=== PATIENT | male | born 1970 ===

== ENCOUNTER → 2025-01-06 10:47 | Outpatient (BNVA) | payer MEDICAID, SELFPAY | PROVIDERS: PCP Nurse Practitioner Family; Visit Provider Nurse Practitioner Family | DX: I10 Essential (primary) hypertension (principal); E11.9 Type 2 diabetes mellitus without complications; E78.2 Mixed hyperlipidemia; Z95.5 Presence of coronary angioplasty implant and graft; Z79.899 Other long term (current) drug therapy | CPT/HCPCS: 74018; 80053; 80061; 81003; 82306; 83036; 84443; 85025; G0103 ==

== ENCOUNTER → 2025-01-20 16:07 | Outpatient (BNVA) | payer MEDICAID, SELFPAY | PROVIDERS: PCP Nurse Practitioner Family; Visit Provider Nurse Practitioner Family | DX: M17.0 Bilateral primary osteoarthritis of knee (principal); M25.572 Pain in left ankle and joints of left foot; M25.571 Pain in right ankle and joints of right foot | CPT/HCPCS: 73562; 73610 ==

== ENCOUNTER → 2025-02-09 14:28 | Outpatient (BNVA) | payer MEDICAID, SELFPAY | PROVIDERS: PCP Nurse Practitioner Family; Visit Provider Internal Medicine Cardiovascular Disease | DX: R07.9 Chest pain, unspecified (principal); I44.4 Left anterior fascicular block | CPT/HCPCS: 93005 ==

== ENCOUNTER 2025-02-22 07:17 | Outpatient (CLI) | payer MEDICAID, SELFPAY ==
[2025-02-22 07:44] VITALS: BMI 28.3
--- NOTE | 2025-02-22 07:57 | ECG_ITS ---
[facility] [place] [facility] Date: 2025-02-22 Pat Name: Nate Alfredo Department: Room: Gender: Male Clothing Manager: : 1970 Requested By: Maninder Teran Order Number: [id number] Cruz MD: Roge Lau M.D. Interpretive Statements EXERCISE MIBI : EXERCISE DATA: The patient was exercised by Anselmo protocol. Baseline heart rate was 81 beats per minute. Baseline blood pressure was 134/87 millimeters of mercury. Maximal predicted heart rate was 168 beats per minute. Maximum heart rate achieved was 161, which was 95% of the maximum predicted heart rate. Maximum blood pressure was 155/99 millimeters of mercury. Total exercise time was 7 minutes. Maximum METs achieved was 10.2. The reason for ending the test was completion of protocol. The patient complained of shortness of breath during the stress test, which then resolved at the end of the test. ELECTROCARDIOGRAM: BASELINE: Showed sinus rhythm, normal axis, no significant ST-T changes at the baseline noted. [] EXERCISE: At the peak exercise level, [] No significant ST-T changes suggestive of ischemia noted. [] RECOVERY: During the recovery period, heart rate dropped appropriately.ST depressions and T wave inversions seen in inferior and anterolateral leads CONCLUSION: 1. Exercise capacity is good 2. Heart rate response was appropriate 3. Blood pressure response was appropriate 4. Symptoms not suggestive of ischemia. 5. Electrocardiogram portion of the stress test showed ST depressions and T wave inversions in recovery phase in inferior and anterolateral leads. Correlate with imaging 6. Nuclear scan will be documented separately. Electronically Signed On 03-04-2025 20:34:39 CDT by Roge Lau M.D. [email or web address]
--- NOTE | 2025-02-22 07:58 | NMCV_ITS ---
NM rita perf SPECT r/s* [id number] Nate Alfredo Age: 54 Gender: M : 1970 Exam Date: 02/22/2025 08:07 Ordering Phys: Maninder Teran MD ([email or web address]) Technologist: KIMBERLY Monk Exam Location: [facility] Indications: cp STRESS TEST Please see separate stress test report in [facility] for full findings IMAGE PROTOCOL Rest/Stress 1 Exercise Day Radiopharmaceutical Dose (mCi) Administration Site Administered by Rest: Tc-99m 11 IV KIMBERLY Monk Sestamibi Stress:Tc-99m 32.5 IV KIMBERLY Fitzgerald Sestamibi Rest: 22-Feb-2025 60 Discovery 630 Stress: 22-Feb-2025 30 Discovery 630 Radiopharmaceutical was injected at 87 % maximum heart rate. Images obtained in supine and prone position. SPECT RESULTS Technical Quality: Good Raw Data Analysis: Normal Image Corrections: No attenuation or motion correction applied Summed Stress Score: 14 Summed Rest Score: 11 Summed Difference Score: 4 PERFUSION FINDINGS Large area of fixed perfusion defect noted in basal to distal lateral wall surrounded by small to medium sized area of severe reversibility in the distal lateral wall and apex of the left ventricle suggestive of lesion in dominant circumflex territory. Small area of mild reversibility noted in the mid anterior wall suggestive of possible artifact versus ischemia in LAD territory. FUNCTIONAL RESULTS (calculated via Gated SPECT) Stress Image LV EF (%): 35 Stress EDV (mL):176 TID: 1.34 Stress ESV (mL):114 FUNCTIONAL FINDINGS: TID ratio is elevated severely decreased left ventricular ejection fraction estimated ejection fraction 35%. Please note that nuclear stress test is not designed to estimate ejection fraction echocardiogram may be considered. IMPRESSIONS Large area of old myocardial infarction noted in basal to distal lateral wall surrounded by small to medium sized area of severe ischemia suggestive of lesion in circumflex territory. Small area of mild ischemia noted in the mid anterior wall in the absence of wall motion abnormality may suggest artifact however cannot rule out obstructive coronary artery disease Increased TID ratio could be secondary to multivessel coronary artery disease. Danae Gale MD (Electronically Signed) Final Date: 22 February 2025 14:51 S
[2025-02-22 08:56] VITALS: BP 132/84; PULSE 88
== END 2025-02-22 07:18 | disposition home or self-care (01) ==
LOC: CDL 07:19
PROVIDERS: PCP Nurse Practitioner Family; Visit Provider Internal Medicine Cardiovascular Disease
DX: I25.10 Atherosclerotic heart disease of native coronary artery without angina pectoris (principal); R93.1 Abnormal findings on diagnostic imaging of heart and coronary circulation
CPT/HCPCS: 36415; 78452; 93017; A9500

== ENCOUNTER 2025-03-14 05:39 | Outpatient (CLI) | payer MEDICAID, SELFPAY ==
[2025-03-14] VITALS (16 sets, daily range): BP systolic 109–140; BP diastolic 67–99; PULSE 68–890; RESP 13–17; TEMP 36.7; O2SAT 92–98; BMI 29.2
--- NOTE | 2025-03-14 06:00 | XACV_ITS ---
Exam Room: 2 Ht: 165 cm Wt: 80 kg BSA: 1.94 m2 Gender: Male : 1970 Any Known Allergies: No known allergies Exam Priority: Routine Procedure(s): Procedure Description: Diagnostic procedure Procedure Description: Left Heart Catheterization Procedure Description: Left ventriculography Procedure Description: Coronary Angiography Baljinder MORRIS; Conclusions 1. Indication: Worsening of angina with shortness of breath suggestive of unstable/Abn stress test#1 Left main: Normal#2 LAD is moderate size and caliber long vessel with proximal high-grade in-stent restenosis, there is mid high-grade 90% lesion after the mid LAD stent. There are 2 diagonal small caliber vessels without significant stenosis.#3 Left circumflex artery: Proximal 80% eccentric torturous stenosis, there is a mid 90% stenosis, obtuse marginal 1 does not have any significant stenosis#4 RCA is a moderate caliber in size vessel with distal 60 to 70% stenosis Left ventriculography was performed which shows moderately reduced left ventricular ejection fraction 45% there is anterior and and apical wall hypokinesis. Recommendations * 1-Return to ICU for close monitoring and routine PCI care 2-Continue IV heparin drip as per ACS protocol 3-Hold Plavix for possible CABG 4-Statin with LDL goal of 70 mg/dl, aspirin 81 mg p.o. daily for life long 5-CT surgery consults for CABG , refferred to [facility] 6-Optimal medical management for [place] 7-Follow up with Dr. Gale in four weeks and establish care with primary care physician. Diagnostic RX Recommendation: CABG Ventriculography Ejection Fraction: 40.0 % Pressures Phase:Rest AO : 106 / 76 ( 88 ) @ 8:53:00 AM 111 / 70 ( 88 ) @ 9:03:00 AM 111 / 52 ( 79 ) @ 9:03:00 AM LV : 116 / -2 / 9 @ 9:01:00 AM 121 / -5 / 8 @ 9:03:00 AM 124 / -4 / 9 @ 9:03:00 AM Valves Phase:DefaultPhase AV : 11.0 @ 8:08:23 AM AV Mean Gradient: 17.0 @ 8:08:23 AM Clinical Evaluation EBL: 5mL-10mL Procedural Details Procedure Consent Obtained. Pre-Procedure Time Out. Identified patient by full name and date of as verbalized by the patient/guarantor. Does the consent match the physician's order: Yes. Accurate & Complete Informed Consent: Yes. Inpatient/Outpatient History & Physical on Chart: Yes. If H&P is completed, is and addenduem needed: No. Visualize and Verify Site with Patient/Guarantor: N/A. Relevant Radiology Images available: Yes. The risks, benefits, and alternatives of sedation and/or procedure were discussed by physician. The patient agrees to continue. Procedure started. [facility] Clinical Fraility Score: 3: Managing Well. Human Resources Department Supervisor Indications: Suspected CAD/Abnormal stress test. Chest Pain Symptom Assessment: Typical Angina Symptoms. Cardiovascular Instability: No. Correct patient, site and procedure confirmed by cath team. PERRLA. Strong, equal hand starting sheet tank operator bilaterally. Lungs clear x 5 lobes. IV Site on Arrival: 20 gauge in the right anticubital. IV Fluids: 0.9% NaCl at KVO. 0 mL infused prior to wood preserving plant laborer. Pre Procedural Pulses: bilateral dorsalis pedis was 3+. Pre Procedural Pulses: bilateral posterior tibial was 3+. Pre Procedural Pulses: bilateral radial was 2+. Oxygen started at 2liters/min via nasal canula. right groin was prepped with chloroprep then draped in the usual sterile fashion. right radial was prepped with chloroprep then draped in the usual sterile fashion. Physician notified. Baseline sample Acquired. HR: 83 BPM. Patient's family in CPRU room #3. Dr. Gale will update at the completion of the procedure. Equipment: 6F - Radial. Cardiac Cath Pack. ACIST Manifold Kit Model BT 2000. Heparinized Saline (2 units/mL), 1000 mL bag. Physician arrived. Physician scrubbed in. Immediate Pre-Procedure Time Out. Correct Patient: Yes; Correct Procedure: Yes; Correct Site: Yes; Correct Patient Position: Yes; Correct Supplies: Yes; Dried Flammable Prep: Yes; Blood Products Available: N/A;. Lidocaine 1% infiltrated to the right radial. Lidocaine 1% infiltrated to the right radial. Arterial access obtained using ultrasound guidance. A 5 danish TIG catheter in over the exchange J wire. Multiple views taken of left coronary artery. Catheter redirected to the RCA. Multiple views taken of right coronary artery. Catheter removed over the exchange J wire. A 5 danish Angled Pig catheter in over the exchange J wire. EDP Sample taken: LV 116/-3,9; HR: 87 BPM; SpO2: 96%. LV gram performed in HENSON @ 10 mL/second for a total of 30 mL. EDP Sample taken: LV 121/-6,8; HR: 87 BPM; SpO2: 95%. Pullback taken: LV 124/-5,9; AO 111/70(88); Mean: 17mmHg, Peak to Peak: 11mmHg, SEP: 11sec/min; HR: 86 BPM; SpO2: 94%. Catheter removed over the exchange J wire. Dr. Gale scrubbed out. A TR Band was successful obtaining hemostatsis at the Right Radial artery insertion site. Post Procedure: Pulses reassessed and unchanged. PERRLA. Strong, equal hand starting sheet tank operator bilaterally. No VTE prophylaxis required. Medication's Wasted: Lidocaine 1% = 10 mL. Medication's Wasted: Nitro = 49.75 mg. Medication's Wasted: Heparin = 1000 units. Medication's Wasted: Other = Fentanyl 50 mcg. Post-op diagnosis: ISR of the LAD and CX, CABG referral. Complications: none. Responsiveness - Normal response to verbal stimuli; alert and oriented, PERRLA. Estimated blood loss: 5mL-10mL. Airway - Unaffected, no intervention required; spontaneous ventilation. Circulation: W/N/L, pulses unchanged. Nausea/Vomiting: No. Procedure completed. Patient transferred by bed to CPRU. Patient transferred by wheelchair to CPRU. Vital chart was stopped. Access Site Site: Right Radial artery Sheath Size: 6 Fr Hemostasis Method: TR Band Hemostasis Success: Successful Procedure Medications Start: 7:27 AM Stop: 7:27 AM Medication: Versed Amount: 1 mg Start: 7:27 AM Stop: 7:27 AM Medication: Fentanyl Amount: 50 mcg Route: I.V. Start: 7:42 AM Stop: 7:42 AM Medication: Nitrogylcerin Amount: 50 mcg Route: S.Q. Start: 7:44 AM Stop: 7:44 AM Medication: Versed Amount: 1 mg Route: I.V. Start: 7:50 AM Stop: 7:50 AM Medication: Nitrogylcerin Amount: 200 mcg Route: I.A. Start: 7:53 AM Stop: 7:53 AM Medication: Heparin Amount: 5000 units Route: I.V. I, the attending physician, have reviewed and verified all procedure medications. Yes, all medications given per verbal order History/Risk Factors Hypertension: Yes Dyslipidemia: Yes Peripheral Arterial Disease (PAD): No Myocardial Infarction ([place]): Yes Obesity: No Renal Disease: No Tobacco Use: Never Prior Interventions PCI: Yes CABG: No Valve Surgery: No Date of PCI: 01/16/2018 Report Signatures Finalized by Danae Gale MD on 03/25/2025 01:13 PM
[2025-03-14 06:15] LABS: Hematocrit 50.9 % (37-53); Hemoglobin 17.50 g/dL (11.27-16.99); Mean Corpuscular HGB Conc 34.4 g/dL (30-55); Mean Corpuscular Hemoglobin 30.0 pg (27-33); Mean Corpuscular Volume 87.3 fl (82-101); Nucleated Red Blood Cells % 0 %; Platelet Count 146 10^3/cmm (157-399); Red Blood Count 5.83 10^6/uL (3.85-5.65); White Blood Count 9.28 10^3/uL (3.29-11.43)
[2025-03-14 06:36] LABS: Anion Gap 17.9 (5-19); Blood Urea Nitrogen 15 mg/dL (6-20); Calcium 8.9 mg/dL (8.5-10.5); Carbon Dioxide 22 mmol/L (22-29); Chloride 101 mmol/L (98-107); Glucose 230 mg/dL (65-115); Osmolality Calculated 292 mOsm/kg (285-295); Potassium 3.9 mmol/L (3.5-5.1); Sodium 137 mmol/L (136-145)
--- NOTE | 2025-03-14 07:28 | W.PM.OPSFHP ---
Same Day Surgery H&P Indication for Procedure/HPI DATE OF PROCEDURE: March 14, 2025 CHIEF COMPLAINT/INDICATIONFOR SURGICAL PROCEDURE: Chest pain Abnormal stress test PREOP DIAGNOSIS: Chest pain/abnormal stress test PLANNED PROCEDURE: Operation Date: 03/14/25 07:00 Proposed Procedures p Cardiac Catheterization - [facility] w/wo LV & Coros(Left) - Danae Gale MD 54-year-old male past medical history significant for ischemic cardiomyopathy severely depressed ejection fraction around 35 to 40%, history of extensive coronary artery disease for worsening of chest pain shortness of breath radiating to neck jaw underwent stress test which turns out to be abnormal positives since patient continues to have symptoms his charter driver Dr. Teran suggested to proceed with left heart catheterization. It is the reason patient is here. Medications/Allergies* Home Medications ?Medication ?Instructions ?Recorded ?Confirmed ?Type polyethylene glycol 3350 17 gram 17 g PO DAILY PRN Constipation 02/09/25 03/14/25 History oral powder packet (Miralax) spironolactone 25 mg tablet 25 mg PO .weekly 02/09/25 03/14/25 History Allergies/Adverse Reactions Allergy/AdvReac Type Severity Reaction Status Date / Time No Known Allergies Allergy Unverified 02/24/25 09:35 Current Medications: Generic Name Dose Route Start Last Admin Trade Name Freq PRN Reason Stop Dose Admin Sodium Chloride 1,000 mls @ 50 mls/hr 03/14/25 06:00 03/14/25 06:38 Sodium Chloride 0.9% IV 03/15/25 01:59 Not Given .Q20H ONE Pertinent History/Comorbid Conditions* Medical History (Updated 02/24/25 @ 09:53 by LOULOU Soto) Hypoglycemic event in diabetes Biventricular heart failure with reduced left ventricular function Chronic systolic CHF (congestive heart failure) Grade II diastolic dysfunction Ischemic cardiomyopathy May 2024 cardiology records Ischemic Cardiomyopathy with biventricular dysfunction. Ejection fraction < 50% May 2024 - result was 25-30% Elevated hemoglobin Chronic ankle pain, bilateral Chronic pain of both knees Osteoarthritis of multiple joints, unspecified osteoarthritis type Insomnia, unspecified type Cervical disc disorder with radiculopathy Degeneration of intervertebral disc of lumbar region with discogenic back pain and lower extremity pain Hx of DDD lumbar spine - treated by Chiropractor. Hx of pleural effusion Coronary artery disease involving [place] coronary artery of [place] heart, unspecified whether angina present Slow transit constipation Chronic idiopathic constipation Mixed hyperlipidemia Essential hypertension Type 2 diabetes mellitus without complication, without long-term current use of insulin Medication management Surgical History (Updated 01/08/25 @ 21:41 by LOULOU Soto) History of percutaneous coronary intervention History of heart artery stent 4 cardiac stents [place] in [place] and [place]. Family History (Updated 02/09/25 @ 14:48 by Aarti Motta LPN) Diabetes Mother CAD (coronary artery disease) Father Mother Cancer Mother Hypertension Father Mother Brother Sister Social History Smoking and tobacco/nicotine status: former use of tobacco/nicotine Alcohol intake: current Alcohol intake frequency: holidays/special occasions only Substance/Drug Use: former Date of last use: 2005 Former substance use details: COCAINE Pertinent Exam Findings alert, oriented x 3, clear to auscultation bilaterally, regular rate & rhythm, operative site marked and procedure specific exam findings GENERAL: Patient is alert, awake and oriented x3. HEART: Regular S1 and S2. No murmur, rub or gallop. LUNGS: Clear to auscultate bilaterally. CENTRAL NERVOUS SYSTEM: Grossly nonfocal. EXTREMITIES: Lower extremities with out edema bilaterally. Conscious Sedation Assessment PATIENT ASSESSED PRIOR TO SEDATION, WITH NO CHANGE NOTED: Yes AIRWAY EVAL/ANESTHESIA PLAN: ASA II, Risks, benefits & alternatives of sedation and/or procedure discussed and Patient agrees to continue as planned ADDITIONAL INFORMATION: All risk-benefit and alternative for the procedure has been explained to the patient. Patient understands 2% risk of stroke major bleed. Patient understands 5% risk of minor bleeding oozing infection hematoma contrast-induced nephropathy urgent emergent vascular bypass surgery. Patient would like to proceed with it. Recommendations Other Coding Level of Care Code Acute Code for Chg Fwd
--- NOTE | 2025-03-14 08:15 | SUR.PHASEII ---
POST CATH NOTE Received patient from lift slab operator. Status post cardiac catheterization via the right radial approach. TR Band in place- 14 ml in band. The site is hemostatic and free of hematoma formation. Vitals and assessments per flowsheets. Call light within reach. Informed to call for needs. No pain reported.
--- NOTE | 2025-03-14 08:20 | SUR.PHASEII ---
POST FLUIDS IV fluids set at 100 ml/hr post cath.
== END 2025-03-14 12:47 | disposition home or self-care (01) ==
PROVIDERS: PCP Nurse Practitioner Family; Visit Provider Internal Medicine Cardiovascular Disease
DX: I25.118 Atherosclerotic heart disease of native coronary artery with other forms of angina pectoris (principal); Z95.5 Presence of coronary angioplasty implant and graft; I10 Essential (primary) hypertension; I25.2 Old myocardial infarction; E11.9 Type 2 diabetes mellitus without complications; E78.2 Mixed hyperlipidemia; Z82.49 Family history of ischemic heart disease and other diseases of the circulatory system; Z87.891 Personal history of nicotine dependence
CPT/HCPCS: 36415; 80048; 85025; 93458; 96365; 99152; 99153; C1769; C1887; C1894; J1644; J2250; J3010; J3490; J7030; J9999; Q0163; Q9967

== ENCOUNTER 2025-03-24 09:13 | Outpatient (CLI) | payer MEDICAID, SELFPAY ==
--- NOTE | 2025-03-24 09:30 | USCV_ITS ---
Nate Alfredo Age: 54 Gender: M : 1970 Exam Date: 03/24/2025 09:43 Ordering Phys: Maninder Teran MD ([email or web address]) Technologist: MEGHAN [place] [facility] [place] Indication: SoB BP: 128 / 76 HR: 68 Rhythm: Sinus Technical Quality: Adequate MEASUREMENTS (Male / Female) Normal Values 2D ECHO LV Diastolic Diameter PLAX 5.9 cm 4.2 - 5.9 / 3.9 - 5.3 cm IVS Diastolic Thickness 0.8 cm 0.6 - 1.0 / 0.6 - 0.9 cm IVS Systolic Thickness 0.9 cm LVPW Diastolic Thickness 1.0 cm 0.6 - 1.0 / 0.6 - 0.9 cm LVPW Systolic Thickness 0.9 cm LVOT Diameter 2.0 cm LV Ejection Fraction 2D Teich 17.3 % LV Ejection Fraction MOD 4C 45.2 % LV Ejection Fraction MOD 2C 49.1 % LV Ejection Fraction 2C AL 50.3 % LA Diameter 3.6 cm RA Systolic Volume 4C AL 19.6 ml RA Systolic Volume 4C MOD 19.9 ml LA Sys Volume AL 20.8 cm cubed LA Sys Volume Index AL 10.7 cm cubed/m squared Aorta at Sinotubular Diameter 2.3 cm M-MODE LA Ao Ratio MM 1.6 AV Cusp Separation MM 1.5 cm DOPPLER AV Peak Velocity 129.0 cm/s LVOT Peak Velocity 97.0 cm/s AV Area Cont Eq vti 2.6 cm squared AV Area Cont Eq pk 2.3 cm squared MV Peak Velocity 70.0 cm/s MV Area PHT 3.9 cm squared Mitral E to A Ratio 0.8 TR Peak Velocity 126.0 cm/s TR Peak Gradient 6.4 mmHg TV Peak E Velocity 64.0 cm/s PV Peak Velocity 97.0 cm/s FINDINGS Left Ventricle Normal left ventricular size. Mildly reduced left ventricular systolic function Left ventricular ejection fraction is 49%. Normal left ventricular wall thickness. Normal left ventricular diastolic function. Right Ventricle Normal right ventricular size and systolic function. Right Atrium Normal right atrial size. Left Atrium Normal left atrial size. IA Septum Normal appearance of the interatrial septum. Mitral Valve Normal mitral valve structure. No mitral valve stenosis or regurgitation. Aortic Valve Normal aortic valve structure. No aortic valve stenosis or regurgitation. Tricuspid Valve Normal tricuspid valve structure. No tricuspid valve stenosis or regurgitation. Normal pulmonary pressure. Pulmonic Valve Normal pulmonic valve structure. No pulmonic valve stenosis or regurgitation. Pericardium No pericardial effusion. Aorta Normal diameter of the aortic root and ascending thoracic aorta. IVC Inferior vena cava not visualized. CONCLUSIONS Normal left ventricular size. Mildly reduced left ventricular systolic function with mild global hypokinesis. Left ventricular ejection fraction is 49%. Normal right ventricular size and systolic function. No significant valvular abnormalities. Maninder Teran MD, FACC (Electronically Signed) Final Date: 01 April 2025 12:57 S
== END 2025-03-24 09:14 | disposition home or self-care (01) ==
LOC: RAD 09:14
PROVIDERS: PCP Nurse Practitioner Family; Visit Provider Internal Medicine Cardiovascular Disease
DX: I50.22 Chronic systolic (congestive) heart failure (principal); R93.1 Abnormal findings on diagnostic imaging of heart and coronary circulation; I51.89 Other ill-defined heart diseases
CPT/HCPCS: 93306

== ENCOUNTER → 2025-05-01 13:30 | Outpatient (BNVA) | payer MEDICAID, SELFPAY | PROVIDERS: PCP Nurse Practitioner Family; Visit Provider Nurse Practitioner Family | DX: E11.9 Type 2 diabetes mellitus without complications (principal) | CPT/HCPCS: 80053; 80061; 81003; 82306; 83036; 84443; 85025 ==